=== PATIENT | female | born 1985 | race Caucasian/White ===

== ENCOUNTER 2017-04-18 02:10 | Emergency (ER) | payer OTHER ==
[~2017-04-18] VITALS: Ht 170.2 cm; Wt 59.7 kg
[~2017-04-18 02:10] MED LIST: AUGMENTIN875 MG PO; BACTRIM,SEPT1 TABLET PO; BENTYL10 MG PO; KEFLEX500 MG PO; LIDOCAINE20 MG/1 M5 PO; MOTRIN800 MG PO; NAPROSYN500 MG PO; NOHOMEMEDS; NORCO 5/3251 TABLET PO; NORCO 7.5/321 TABLET PO; PEN-VEE K,VEET500 MG PO; PREDNISONE50 MG PO; PROVENTIL HFA6.7 GM IH
[2017-04-18] MEDS ORDERED: AUGMENTIN875 MG PO (02:41)
[2017-04-18] MEDS ORDERED: ULTRAM50 MG PO (02:43)
[2017-04-18 03:12] VITALS: BP 138/96
== END 2017-04-18 03:13 | disposition home or self-care (01) ==
LOC: EME 02:10
DX: K02.9 Dental caries, unspecified (principal); R22.0 Localized swelling, mass and lump, head; F17.200 Nicotine dependence, unspecified, uncomplicated; J45.909 Unspecified asthma, uncomplicated
CPT/HCPCS: 99281; 99284

== ENCOUNTER 2017-09-08 18:44 | Emergency (ER) | payer OTHER ==
[~2017-09-08] VITALS: Ht 167.6 cm; Wt 61.3 kg
[~2017-09-08 18:44] MED LIST changes: +ULTRAM50 MG PO
[2017-09-08 19:13] LABS: HEMATOCRIT 36.9 % (36.0-46.0); HEMOGLOBIN 13.3 G/DL (11.9-15.5); MCH 31.4 PG (29.0-34.0); PLATELET COUNT 218 K/uL (156-360); RBC DIS.WIDTH-CV 11.8 % (11.8-14.6); RBC DIS.WIDTH-SD 37.4 % (39-53); RED BLOOD COUNT 4.24 M/uL (3.80-5.20)
[2017-09-08 19:22] LABS: ALBUMIN 4.2 g/dL (3.2-4.8); CHLORIDE 103 mEq/L (99-109); POTASSIUM 3.9 mEq/L (3.7-5.4); SODIUM 135 mEq/L (136-147)
[2017-09-08 19:24] LABS: GLUCOSE 122 mg/dL (70-99); TOTAL PROTEIN 6.9 g/dL (6.4-8.3)
[2017-09-08 19:26] LABS: TOTAL BILIRUBIN 0.6 mg/dL (0.0-1.0)
[2017-09-08 19:28] LABS: ALKALINE PHOSPHATASE 91 IU/L (3-129); CREATININE 0.7 mg/dL (0.6-1.3); GFR ESTIMATE (CALCULATED) > 59 mL/min/
[2017-09-08 19:29] LABS: UREA NITROGEN (BUN) 10 mg/dL (9-23)
[2017-09-08 19:30] LABS: AST (GOT) 44 IU/L (2-34)
[2017-09-08 19:31] LABS: ALT (GPT) 75 IU/L (3-49); LIPASE 15 U/L (1.0-51.0)
[2017-09-08 19:33] LABS: APPEARANCE SL.HAZY ((CLEAR)); BILIRUBIN NEGATIVE; BLOOD SMALL; COLOR YELLOW ((YELLOW)); GLUCOSE (STRIP) NEGATIVE; KETONES 5; LEUKOCYTES MODERATE; NITRITE NEGATIVE; PROTEIN (STRIP) NEGATIVE; SPECIFIC GRAVITY 1.027 (1.000-1.030); UROBILINOGEN 0.2 MG/DL (0.2-1.0)
[2017-09-08 19:45] LABS: BACTERIA RARE /HPF; EPITHELIAL CELLS RARE /HPF; MUCUS TRACE /LPF
[2017-09-08 19:57] LABS: QUANTITATIVE HCG 89007.2 MIU/ML
[2017-09-08] MEDS ORDERED: ZOFRAN ODT4 MG PO (20:33)
[2017-09-08] MEDS ORDERED: KEFLEX500 MG PO (20:33)
[2017-09-08 21:23] VITALS: BP 111/68
== END 2017-09-08 21:20 | disposition home or self-care (01) ==
LOC: EME 18:44
PROVIDERS: Nurse Practitioner Family
DX: O23.11 Infections of bladder in pregnancy, first trimester (principal); O26.891 Other specified pregnancy related conditions, first trimester; R11.2 Nausea with vomiting, unspecified; R53.83 Other fatigue; O99.511 Diseases of the respiratory system complicating pregnancy, first trimester; J45.909 Unspecified asthma, uncomplicated; O99.331 Smoking (tobacco) complicating pregnancy, first trimester; F17.200 Nicotine dependence, unspecified, uncomplicated; Z90.49 Acquired absence of other specified parts of digestive tract; Z3A.08 8 weeks gestation of pregnancy
CPT/HCPCS: 80053; 81003; 83690; 84702; 85027; 99281; 99285; J2405; J7030

== ENCOUNTER 2017-09-16 11:07 | Emergency (ER) | payer OTHER ==
[~2017-09-16] VITALS: Ht 170.2 cm; Wt 62.9 kg
[~2017-09-16 11:07] MED LIST changes: +ZOFRAN ODT4 MG PO
[2017-09-16 12:12] LABS: HEMATOCRIT 37.4 % (36.0-46.0); HEMOGLOBIN 13.2 G/DL (11.9-15.5); MCH 31.1 PG (29.0-34.0); MCHC 35.3 G/DL (30.0-36.0); PLATELET COUNT 217 K/uL (156-360); RBC DIS.WIDTH-CV 11.9 % (11.8-14.6); RED BLOOD COUNT 4.25 M/uL (3.80-5.20); WHITE BLOOD COUNT 7.4 K/uL (4.1-10.2)
[2017-09-16 12:24] LABS: ALBUMIN 4.2 g/dL (3.2-4.8)
[2017-09-16 12:25] LABS: CHLORIDE 106 mEq/L (99-109); POTASSIUM 3.8 mEq/L (3.7-5.4); SODIUM 135 mEq/L (136-147)
[2017-09-16 12:27] LABS: GLUCOSE 92 mg/dL (70-99); TOTAL PROTEIN 6.8 g/dL (6.4-8.3)
[2017-09-16 12:29] LABS: TOTAL BILIRUBIN 0.5 mg/dL (0.0-1.0)
[2017-09-16 12:30] LABS: ALKALINE PHOSPHATASE 103 IU/L (3-129)
[2017-09-16 12:31] LABS: CREATININE 0.6 mg/dL (0.6-1.3); GFR ESTIMATE (CALCULATED) > 59 mL/min/
[2017-09-16 12:32] LABS: AST (GOT) 127 IU/L (2-34); UREA NITROGEN (BUN) 7 mg/dL (9-23)
[2017-09-16 12:33] LABS: ALT (GPT) 307 IU/L (3-49)
[2017-09-16 12:34] LABS: LIPASE 7 U/L (1.0-51.0)
[2017-09-16 13:23] LABS: QUANTITATIVE HCG 108181.9 MIU/ML
[2017-09-16] MEDS ORDERED: TYLENOL EXTRA500 MG PO (14:03)
[2017-09-16] MEDS ORDERED: PRENATAL TABLE1 EAC3 PO (14:03)
[2017-09-16] MEDS ORDERED: BUPRENORPHINE HC8 MG PO ×2 (14:04→14:05)
[2017-09-16 16:11] LABS: HEMATOCRIT 33.5 % (36.0-46.0); HEMOGLOBIN 11.8 G/DL (11.9-15.5); MCH 31.3 PG (29.0-34.0); MCHC 35.2 G/DL (30.0-36.0); MCV 88.9 FL (83-99); PLATELET COUNT 180 K/uL (156-360); RBC DIS.WIDTH-SD 38.8 % (39-53); RED BLOOD COUNT 3.77 M/uL (3.80-5.20); WHITE BLOOD COUNT 8.1 K/uL (4.1-10.2)
[2017-09-16 16:25] LABS: ALBUMIN 3.6 g/dL (3.2-4.8); CHLORIDE 109 mEq/L (99-109); POTASSIUM 3.9 mEq/L (3.7-5.4); SODIUM 136 mEq/L (136-147)
[2017-09-16 16:27] LABS: GLUCOSE 113 mg/dL (70-99)
[2017-09-16 16:31] LABS: ALKALINE PHOSPHATASE 90 IU/L (3-129); CREATININE 0.6 mg/dL (0.6-1.3); GFR ESTIMATE (CALCULATED) > 59 mL/min/
[2017-09-16 16:32] LABS: UREA NITROGEN (BUN) 6 mg/dL (9-23)
[2017-09-16 16:33] LABS: AST (GOT) 80 IU/L (2-34)
[2017-09-16 16:34] LABS: ALT (GPT) 230 IU/L (3-49)
[2017-09-16 16:37] LABS: TOTAL BILIRUBIN 0.3 mg/dL (0.0-1.0); TOTAL PROTEIN 5.7 g/dL (6.4-8.3)
[2017-09-17 01:10] LABS: APPEARANCE SL.HAZY ((CLEAR)); BILIRUBIN NEGATIVE; BLOOD NEGATIVE; COLOR YELLOW ((YELLOW)); GLUCOSE (STRIP) NEGATIVE; KETONES NEGATIVE; LEUKOCYTES LARGE; NITRITE NEGATIVE; PROTEIN (STRIP) NEGATIVE; UROBILINOGEN 0.2 MG/DL (0.2-1.0)
[2017-09-17 01:14] LABS: BACTERIA RARE /HPF; EPITHELIAL CELLS 1+ /HPF; MUCUS TRACE /LPF; RED BLOOD CELLS 0-5 /HPF (0-5); UCUL ADDED? YES
[2017-09-17 02:00] VITALS: BP 108/59
[2017-09-17] MEDS ORDERED: ZOFRAN4 MG PO (02:51)
[2017-09-17] MEDS ORDERED: KEFLEX500 MG PO (02:51)
[2017-09-17 03:00] LABS: SOURCE SWAB
== END 2017-09-17 03:22 | disposition home or self-care (01) ==
LOC: EME 11:07
PROVIDERS: Emergency Medicine; Nurse Practitioner Family
DX: O23.11 Infections of bladder in pregnancy, first trimester (principal); O21.9 Vomiting of pregnancy, unspecified; Z3A.08 8 weeks gestation of pregnancy; O26.891 Other specified pregnancy related conditions, first trimester; R10.9 Unspecified abdominal pain; R79.89 Other specified abnormal findings of blood chemistry; Z87.891 Personal history of nicotine dependence; Z90.49 Acquired absence of other specified parts of digestive tract; O34.81 Maternal care for other abnormalities of pelvic organs, first trimester; N83.202 Unspecified ovarian cyst, left side
CPT/HCPCS: 76705; 76801; 80053; 81003; 83690; 84702; 85027; 87086; 87210; 87491; 87591; 99281; 99285; J2405; J7030

== ENCOUNTER 2017-09-30 17:59 | Emergency (ER) | payer OTHER ==
[~2017-09-30] VITALS: Ht 167.6 cm; Wt 64.2 kg
[~2017-09-30 17:59] MED LIST changes: +BUPRENORPHINE HC8 MG PO; +PRENATAL TABLE1 EAC3 PO; +TYLENOL EXTRA500 MG PO; +ZOFRAN4 MG PO
[2017-09-30 19:06] LABS: APPEARANCE SL.HAZY ((CLEAR)); BILIRUBIN NEGATIVE; BLOOD SMALL; COLOR YELLOW ((YELLOW)); GLUCOSE (STRIP) NEGATIVE; KETONES NEGATIVE; LEUKOCYTES MODERATE; NITRITE NEGATIVE; PROTEIN (STRIP) NEGATIVE; SPECIFIC GRAVITY 1.023 (1.000-1.030); UROBILINOGEN 0.2 MG/DL (0.2-1.0)
[2017-09-30 19:12] LABS: HEMATOCRIT 33.9 % (36.0-46.0); HEMOGLOBIN 12.1 G/DL (11.9-15.5); MCH 31.6 PG (29.0-34.0); MCHC 35.7 G/DL (30.0-36.0); MCV 88.5 FL (83-99); PLATELET COUNT 190 K/uL (156-360); RBC DIS.WIDTH-CV 12.1 % (11.8-14.6); RBC DIS.WIDTH-SD 38.8 % (39-53); RED BLOOD COUNT 3.83 M/uL (3.80-5.20); WHITE BLOOD COUNT 8.8 K/uL (4.1-10.2)
[2017-09-30 19:15] LABS: BACTERIA 2+ /HPF; CALCIUM OXALATE CRYSTALS 1+ /HPF; EPITHELIAL CELLS 1+ /HPF; HYALINE CASTS 0-5 /LPF; MUCUS 2+ /LPF; UCUL ADDED? YES
[2017-09-30 19:26] LABS: ALBUMIN 3.8 g/dL (3.2-4.8); CHLORIDE 106 mEq/L (99-109); POTASSIUM 3.6 mEq/L (3.7-5.4); SODIUM 138 mEq/L (136-147)
[2017-09-30 19:28] LABS: GLUCOSE 79 mg/dL (70-99)
[2017-09-30 19:29] LABS: TOTAL PROTEIN 6.1 g/dL (6.4-8.3)
[2017-09-30 19:30] LABS: TOTAL BILIRUBIN 0.4 mg/dL (0.0-1.0)
[2017-09-30 19:32] LABS: ALKALINE PHOSPHATASE 133 IU/L (3-129); CREATININE 0.6 mg/dL (0.6-1.3); GFR ESTIMATE (CALCULATED) > 59 mL/min/
[2017-09-30 19:33] LABS: UREA NITROGEN (BUN) 7 mg/dL (9-23)
[2017-09-30 19:34] LABS: AST (GOT) 98 IU/L (2-34)
[2017-09-30 19:35] LABS: ALT (GPT) 518 IU/L (3-49)
[2017-09-30 19:57] LABS: QUANTITATIVE HCG 37573.2 MIU/ML
[2017-09-30 20:37] LABS: LACTATE DEHYDROGENASE 185 IU/L (20-246); LIPASE 19 U/L (1.0-51.0)
[2017-09-30 22:00] VITALS: BP 117/74
[2017-10-02] MEDS ORDERED: BUPRENORPHINE HC8 MG SL (20:16)
[2017-10-02] MEDS ORDERED: ZANTAC150 MG PO (20:16)
== END 2017-09-30 22:01 | disposition home or self-care (01) ==
LOC: EME 17:59 → EXP 17:59
PROVIDERS: Physician Assistant
DX: O26.891 Other specified pregnancy related conditions, first trimester (principal); R10.11 Right upper quadrant pain; O99.89 Other specified diseases and conditions complicating pregnancy, childbirth and the puerperium; R79.89 Other specified abnormal findings of blood chemistry; O99.511 Diseases of the respiratory system complicating pregnancy, first trimester; J45.909 Unspecified asthma, uncomplicated; Z3A.11 11 weeks gestation of pregnancy; Z87.891 Personal history of nicotine dependence
CPT/HCPCS: 76705; 80053; 80074; 81003; 83615; 83690; 84702; 85027; 87086; 99281; 99284; J7030